=== PATIENT | male | born 1990 | race African-American/Black ===

== ENCOUNTER 2017-06-24 14:56 | Emergency (ER) | payer OTHER ==
[~2017-06-24] VITALS: Wt 74.8 kg
[~2017-06-24 14:56] MED LIST: ZITHROMAX250 MG PO; ZOFRAN ODT4 MG SL
[2017-06-24] MEDS ORDERED: SEPTDS PO (16:07)
[2017-06-24] MEDS ORDERED: PERCOCET 5-3251 EACH PO (16:07)
== END 2017-06-24 16:02 | disposition home or self-care (01) ==
LOC: ED 14:56
DX: L73.2 Hidradenitis suppurativa (principal); F17.200 Nicotine dependence, unspecified, uncomplicated